=== PATIENT | male | born 1975 | race Two or more races ===

== ENCOUNTER 2025-07-14 18:47 | Emergency (ER) | payer MEDICAID, SELFPAY ==
[2025-07-14 18:47] VITALS: BMI 25.8
--- NOTE | 2025-07-14 18:55 | XR_ITS ---
Examination: Foot, left, 3 views Technique: AP, oblique, lateral views foot, 3 views Date and time of exam: July 14, 2025, 1900 hours INDICATIONS: Work injury to the foot today, foot pain. FINDINGS: No acute fracture No dislocation No foreign body IMPRESSION: No acute fracture
[2025-07-14 19:18] VITALS: BP 124/73; PULSE 74; RESP 20; TEMP 37; O2SAT 98
--- NOTE | 2025-07-14 19:22 | XR_ITS ---
Examination: Knee, left, 3 views Technique: Knee AP, lateral, oblique 3 views Date and time of exam: July 14, 2025, 1922 hours INDICATIONS: Knee pain and swelling today. FINDINGS: No fracture or dislocation Small knee effusion IMPRESSION: No fracture or dislocation
[2025-07-14 20:22] LABS: Uric Acid 6.8 mg/dL (3.7-9.2)
--- NOTE | 2025-07-14 20:26 | PRELIM_ITS ---
Radiographs of the left foot ([3] views). July 14, 2025 1902 hours Clinical History: Work accident Comparison: No prior study is available for comparison. Findings: There is no evidence of acute fracture or traumatic dislocation. Mild diffuse osteopenia noted. The visualized bones are of normal configuration. The visualized joints are normal in configuration and alignment. There is mild diffuse soft tissue edema. Impression: No evidence of acute fracture or traumatic dislocation. Report Electronically Signed By: Lavern Sebastian 07/14/2025 8:25:30 PM [EST]
[2025-07-14 20:48] VITALS: TEMP 36.7
[2025-07-14] MEDS: KETOROLAC INJ 30 MG/ML VIAL IM (20:48)
[2025-07-14] MEDS: HYDROcodone/APAP 5/325 TABLET 1 TAB PO (20:49)
[2025-07-14 21:19] VITALS: TEMP 36.7
--- NOTE | 2025-07-14 22:46 | PD.EDANKLE ---
Lower Extremity Injury RME/HPI General Chief Complaint: Ankle/Foot Injury Stated Complaint: L FOOT PAIN X1 DAY Time Seen by Provider: 07/14/25 18:54 Source: patient Arrival date/time: 07/14/25 18:47 Mode of arrival: ambulatory Limitations: language barrier RME / HPI Injury: Left: knee and foot RME / HPI Narrative: There is a British-speaking only 49-year-old male who arrives to the ED today for evaluation of left leg pain concerns status post hitting his leg against an I-beam at work 2 days ago. 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 Patient arrives stating that he has a difficult time ambulating and additionally, patient has mild left knee swelling. Patient denies any fever nausea or vomiting. Vital signs were stable. Related Data Previous Rx's ?Medication ?Instructions ?Recorded ibuprofen 600 mg tablet (IBU) 600 mg PO Q6H PRN fever or pain 07/14/25 #20 tabs tramadol 50 mg tablet 50 mg PO Q8H PRN pain #20 tabs 07/14/25 Allergies Allergy/AdvReac Type Severity Reaction Status Date / Time No Known Allergies Allergy Verified 07/14/25 18:49 Review of Systems Review of Systems Systems Reviewed: All systems reviewed, normal except as documented Past Medical History Past Medical History NEUROLOGIC: Negative Seizures CARDIAC: Negative Cardiac Disorders or Congestive Heart Failure RESPIRATORY: Negative Chronic Obstructive Pulmonary Disease (COPD) or Asthma GENITOURINARY: Negative Renal Disease ENDOCRINE: Negative Diabetes Mellitus Type 1 or Diabetes Mellitus Type 2 HEMATOLOGIC: Negative Sickle Cell Disease OTHER HISTORY: Negative Blood Transfusions, Blood Transfusion Reaction or Anesthesia Reactions Social History SMOKING STATUS: Never smoker ED Exam Narrative Physical exam: Patient appears to be in mild to moderate distress due to left knee and foot concerns. General Limitations: Present language barrier General appearance: Present alert and in distress (Mild distress due to left knee and foot concerns) Head Head exam: Present atraumatic Eye Eye exam: Present normal appearance, PERRL and EOMI ENT ENT exam: Present normal exam, normal oropharynx and mucous membranes moist Neck Neck exam: Present normal inspection, full ROM and trachea midline Chest Chest inspection: Present normal inspection and symmetric chest wall rise Respiratory Respiratory exam: Present normal lung sounds bilaterally Cardiovascular Cardiovascular exam: Present regular rate, normal rhythm and normal heart sounds Abdominal Exam Abdominal exam: Present soft and normal bowel sounds Extremities Exam Extremities exam: Present other (Diffuse dorsal tenderness palpation throughout the left foot without any definitive signs of trauma. Possible mild edema. Left knee reveals some moderate edema and moderate reduced active motion. Patient cannot bear weight due to knee and foot pain. Distal vascular intact. No crepitus.) Back Exam Back exam: Present normal inspection and full ROM Neurological Exam Neurological exam: Present alert, oriented X3 and CN II-XII intact Psychiatric Psychiatric exam: Present normal affect and normal mood Skin Skin exam: Present warm, dry, intact and normal color Course Quality Measures none Orders Category Date Time Status Crutches .NOW Care 07/14/25 19:22 Active XR foot comp LT min 3V Stat Exams 07/14/25 18:55 Completed XR knee LT 3V Stat Exams 07/14/25 19:22 Completed Uric Acid Stat Lab 07/14/25 19:32 Completed HYDROcodone*/APAP 5/325 [[place] 5/325] Med 07/14/25 19:22 Discontinued 1 tab PO X1 ONE Ketorolac Inj [Toradol Inj] Med 07/14/25 19:22 Discontinued 30 mg IM X1 ONE As noted above Vital Signs Vital signs: Vital Signs Temperature 98.6 F 07/14/25 19:18 Pulse Rate 74 07/14/25 19:18 Respiratory Rate 20 07/14/25 19:18 Blood Pressure 124/73 07/14/25 19:18 Pulse Oximetry (%) 98 07/14/25 19:18 Oxygen Delivery Method Room Air 07/14/25 19:18 As noted above Extremity Injury, Lower MDM Narrative MDM Narrative:: Pulse ox performed the ED were evaluated by me personally. Imaging studies of the left foot and knee were unremarkable for any acute fractures. Left knee reveals mild to moderate effusion. Advised patient like pain medication as needed and additionally, follow-up with primary care provider in the next few days for reevaluation. Patient was provided with crutches to aid in ambulation. Patient data External records reviewed:: [facility] previous records Clinical information provided by:: patient Social determinants that could affect healthcare access:: none Patient has the following chronic illnesses:: None How is presenting disease/condition affected by chronic disease/condition?: no chronic disease Evaluation data The following diagnostics were reviewed and interpreted by me:: radiology exam(s) Lab and/or radiology exams considered but not ordered:: None Interpretation Summary: Unremarkable Medications / Prescriptions Medications or Prescriptions considered but not ordered:: None Medication administrations:: Medication Administration History Discontinued Medications Hydrocodone Bitart/Acetaminophen (Hydrocodone/Apap 5/325 Tablet) 1 tab PO X1 ONE Stop: 07/14/25 19:23 Last Admin: 07/14/25 20:49 Dose: 1 tab Documented By: Ketorolac Tromethamine (Ketorolac Inj 30 Mg/Ml Vial) 30 mg IM X1 ONE Stop: 07/14/25 19:23 Last Admin: 07/14/25 20:48 Dose: 30 mg Documented By: SR Pain medications Consultations Consultation(s) initiated? (list below): No Diagnosis Extremity Injury, Lower Differential Diagnosis: other (Knee fracture, knee sprain, knee effusion, foot fracture, foot trauma, foot contusion) Most likely diagnosis given after review of the tests above:: Knee effusion, foot strain Admission Indicated Admission indicated?: not indicated Explain why admission is indicated or not indicated:: Unwarranted Admission Request Was there a request for admission?: No Disposition Plan Disposition Plan: Discharge Discharge Attestation Discharge Attestation: The patient and all family members were given an opportunity to ask questions and understood the discharge instructions. Discharge instructions specifically effects, indications for sooner follow up or return to the emergency department, and the expected course of current diagnosis. Patient condition: Stable Discharge Plan Plan Patient Disposition: HOME (Self Care) Prescriptions/Referrals Prescriptions/Med Rec: New ibuprofen [IBU] 600 mg tablet 600 mg PO Q6H PRN (Reason: fever or pain) Qty: 20 0RF tramadol 50 mg tablet 50 mg PO Q8H PRN (Reason: pain) Qty: 20 0RF Referrals: Chun Moctezuma MD [Primary Care Provider, Family Practice] - In 1 week Problem List Clinical Impression: Effusion of knee joint, Foot sprain Patient/Caregiver Discharge Instructions Education Materials: ED Foot Sprain, ED Knee Effusion Additional Instructions: Advised pain medication as needed for symptomatic relief as well as ice therapy. Print Language: British Stand Alone Forms: Roseanne Award Info., Patient Portal Info Letter
[2025-07-14 23:05] VITALS: PULSE 88; RESP 19; TEMP 36.7; O2SAT 98
== END 2025-07-14 23:06 | disposition home or self-care (01) ==
PROVIDERS: Physician Assistant; Emergency Provider Emergency Medicine; PCP Family Medicine
DX: M25.462 Effusion, left knee (principal); S93.602A Unspecified sprain of left foot, initial encounter; W22.8XXA Striking against or struck by other objects, initial encounter; Y92.89 Other specified places as the place of occurrence of the external cause; Y99.0 Civilian activity done for income or pay
CPT/HCPCS: 36415; 73562; 73630; 84550; 96372; 99283; J1885; A9270